=== PATIENT | male | born 1980 | race Caucasian/White ===

== ENCOUNTER 2024-05-30 19:30 | Inpatient (IN) | payer OTHER ==
[~2024-05-30] VITALS: Ht 182.9 cm; Wt 109.4 kg
[2024-05-30] MEDS ORDERED: CeFAZolin Sodium 1,000 MG in NS 50 ML IV ONE (19:50)
[2024-05-30] MEDS ORDERED: Tetanus,Diphtheria Toxd Ped/Pf 0.5 ML VIAL IM ONE (19:50)
[2024-05-30] MEDS ORDERED: HYDROcodone 5-APAP 325 TAB PO ONE (19:50)
[2024-05-30] MEDS ORDERED: Tetanus and Diphtheria Toxoid 0.5 ML INJ IM ONE (20:10)
[2024-05-30 20:46] LABS: BASOPHILS ABSOLUTE AUTO 0.05 K/mm3 (0.00-0.23); BASOPHILS PERCENT AUTO 1 % (0-2); EOSINOPHILS ABSOLUTE AUTO 0.25 K/mm3 (0.00-0.68); EOSINOPHILS PERCENT AUTO 3 % (0-6); IMMATURE GRAN ABSOLUTE AUTO 0.04 K/mm3 (0.00-0.10); IMMATURE GRAN PERCENT AUTO 0 % (0-1); LYMPHOCYTES ABSOLUTE AUTO 2.08 K/mm3 (0.84-5.20); LYMPHOCYTES PERCENT AUTO 21 % (21-46); MONOCYTES ABSOLUTE AUTO 0.77 K/mm3 (0.16-1.47); MONOCYTES PERCENT AUTO 8 % (4-13); Mean Corpuscular HGB 31.7 pg (26.0-34.0); Mean Corpuscular HGB Conc 34.1 g/dL (31.5-36.5); Mean Corpuscular Volume 93 fL (80-100); Mean Platelet Volume 10.5 fL (9.1-12.4); NEUTROPHILS ABSOLUTE AUTO 6.51 K/mm3 (1.96-9.15); NEUTROPHILS PERCENT AUTO 67 % (41-73); Platelet Count 200 K/mm3 (150-400); RDW Coefficient Variation 12.5 % (11.7-14.2); RDW Standard Deviation 43.2 fL (35.1-46.3); Red Blood Cell Count 4.42 M/mm3 (4.30-5.90)
[2024-05-30] MEDS ORDERED: Ketorolac Tromethamine 30mg Vial IV ONE (20:50)
[2024-05-30 20:58] LABS: Albumin, Blood 3.2 g/dL (3.4-5.0); Albumin/Globulin Ratio 0.9 (0.8-1.8); Bilirubin, Total 0.6 mg/dL (0.1-1.0); Bun/Creatinine Ratio 16.1 (12.0-20.0); C-REACTIVE PROTEIN, EXT RANGE 14.1 mg/dL (0.000-0.300); Creatinine, Blood 0.93 mg/dL (0.60-1.20); Globulin, Blood 3.6 g/dL (2.2-4.0); Potassium, Blood 3.7 mmol/L (3.5-5.5); Total Protein, Blood 6.8 g/dL (6.4-8.2)
[2024-05-30] MEDS ORDERED: Ondansetron HCl 2 MG / ML 2ML Vial IV ONE (21:35)
[2024-05-30] MEDS ORDERED: HYDROmorphone HCl/Pf 1MG SYR IV ONE (21:35)
[2024-05-30] MEDS ORDERED: Piperacillin/Tazobactam Sod 3.375 GM in NS 100 ML IV ONE (21:35)
[2024-05-30] MEDS ORDERED: Clindamycin 600mg in D5W 50 ML IV ONE (21:35)
[2024-05-30] MEDS ORDERED: FentaNYL Citrate 50 MCG/ML 2 ML Injection IV PRN (21:45)
[2024-05-30] MEDS ORDERED: Vancomycin HCL 2,000 MG in NS 500 ML IV ONE (21:45)
[2024-05-30] MEDS ORDERED: Ondansetron HCl 2 MG / ML 2ML Vial IV PRN (21:45)
[2024-05-30] MEDS ORDERED: Clindamycin 900mg in D5W 50ML 50 ML IV ONE (21:55)
[2024-05-30] MEDS ORDERED: Acetaminophen 325 MG TABLET PO PRN (21:55)
[2024-05-30] MEDS ORDERED: NS 1,000 ML IV SCH (22:00)
[2024-05-30] MEDS ORDERED: Lactobacil 2-S.Thermo-Bifido 1 1 Cap PO SCH (22:00)
[2024-05-31] VITALS (20 sets, daily range): BP systolic 100–160; BP diastolic 52–92
--- NOTE | 2024-05-31 05:10 | NUR ---
SUMMARY- PT ARRIVED TO ROOM IN NO DISTRESS. PT AGREED TO TAKE A SHOWER. PT HAS ROAD RASH ON BOTH ARMS, WAIST AND BOTTOCKS. PT PAIN HAS BEEN MANAGED WELL PER MAR. PT IS AMBULATING WELL, PT DENIES DIZZINESS. PT IS CURRENTLY RESTING IN NO DISTREESS. CALL LIGHT IN REACH.
[2024-05-31] MEDS ORDERED: Piperacillin/Tazobactam Sod 3.375 GM in NS 100 ML IV SCH (06:00)
[2024-05-31 06:13] LABS: Hematocrit 37.3 % (37.0-53.0); Hemoglobin 12.9 g/dL (13.5-17.5); Mean Corpuscular HGB 32.1 pg (26.0-34.0); Mean Corpuscular HGB Conc 34.6 g/dL (31.5-36.5); Mean Corpuscular Volume 93 fL (80-100); Mean Platelet Volume 10.1 fL (9.1-12.4); Platelet Count 183 K/mm3 (150-400); RDW Coefficient Variation 12.5 % (11.7-14.2); RDW Standard Deviation 42.8 fL (35.1-46.3); Red Blood Cell Count 4.02 M/mm3 (4.30-5.90); White Blood Cell Count 9.35 K/mm3 (4.00-11.30)
[2024-05-31 06:58] LABS: Bun/Creatinine Ratio 15.9 (12.0-20.0); Calcium, Blood 8.4 mg/dL (8.5-10.1); Creatinine, Blood 0.88 mg/dL (0.60-1.20); Potassium, Blood 3.8 mmol/L (3.5-5.5)
[2024-05-31] MEDS ORDERED: HYDROmorphone HCl/Pf 1MG SYR IV PRN ×2 (07:15→14:15)
[2024-05-31] MEDS ORDERED: Clindamycin 900mg in D5W 50ML 50 ML IV SCH (08:00)
[2024-05-31] MEDS ORDERED: Vancomycin HCL 1,250 MG in NS 250 ML IV SCH (09:00)
--- NOTE | 2024-05-31 10:17 | NUR ---
DISCHARGE PT PROVIDED WITH WRITTEN AND VERBAL DISCHARGE INSTRUCTIONS, HE REPORTED UNDERSTANDING. PT MET ALL GOALS PRIOR TO DISCHARGE. PT'S S/O REPORTS SHE HAS ALREADY OBTAINED PRESCRIPTIONS AND DRESSINGS. PT DISCHARGED AT 0953.
[2024-05-31] MEDS ORDERED: Lactated Ringer's 1,000 ML IV SCH (11:05)
[2024-05-31] MEDS ORDERED: Lidocaine HCl 2% 20 ML MDV ONE (11:39)
--- NOTE | 2024-05-31 11:49 | NUR ---
XEROFORM, AND ABD PAD APPLIED TO R ABRASION ON R SIDE AND BACK. TRIPLE ABX OINTMENT APPLIED TO OTHER ABRASIONS ON THE LEGS AND BACK.
--- NOTE | 2024-05-31 11:49 | NUR ---
PT TAKEN TO DAY SURGERY AT APPROXIMATELY 1140.
[2024-05-31] MEDS ORDERED: Piperacillin/Tazobactam Sod 3.375 GM ONE (11:56)
--- NOTE | 2024-05-31 12:14 | NUR ---
IV SITE LAC FLUSHED WITH 10NS/PATENT.
[2024-05-31] MEDS ORDERED: Bupivacaine 0.5% HCl 5 MG/ML 30MLVIAL ONE (12:18)
[2024-05-31] MEDS ORDERED: propofoL 150 ML IV ONE (12:42)
[2024-05-31] MEDS ORDERED: FentaNYL Citrate 50 MCG/ML 2 ML Injection ONE (12:45)
[2024-05-31] MEDS ORDERED: Midazolam HCl 1MG / ML 2ML Vial ONE (12:45)
[2024-05-31] MEDS ORDERED: Ketorolac Tromethamine 30mg Vial ONE (13:12)
[2024-05-31] MEDS ORDERED: Ondansetron HCl 2 MG / ML 2ML Vial ONE (13:13)
[2024-05-31] MEDS ORDERED: Phenylephrine HCl 100 MCG/ML-NS 10MLSYR (1MG/10ML) ONE (13:21)
[2024-05-31] MEDS ORDERED: propofoL 20 ML IV ONE (13:29)
[2024-05-31] MEDS ORDERED: Magnesium Hydroxide Conc 10 ML UDC PO PRN (14:10)
[2024-05-31] MEDS ORDERED: Metoclopramide HCl 10 MG Tab PO PRN (14:10)
[2024-05-31] MEDS ORDERED: Naloxone HCl 0.4MG / ML 1ML Vial IV PRN (14:10)
[2024-05-31] MEDS ORDERED: Ondansetron 4 MG TAB PO PRN (14:15)
[2024-05-31] MEDS ORDERED: Ondansetron HCl 2 MG / ML 2ML Vial IV PRN (14:15)
[2024-05-31] MEDS ORDERED: NS KCl 20mEq 1,000 ML IV SCH (14:15)
[2024-05-31] MEDS ORDERED: OxyCODONE HCL 5 MG TAB PO PRN (14:15)
[2024-05-31] MEDS ORDERED: Bisacodyl 10 MG Supp PR PRN (14:20)
[2024-05-31] MEDS ORDERED: Acetaminophen 325 MG TABLET PO PRN (14:20)
[2024-05-31] MEDS ORDERED: Naproxen 500 MG Tab PO PRN (14:30)
--- NOTE | 2024-05-31 14:33 | NUR ---
05/31/24 1433 Noe,Radha WOUND ON LEFT HAND, BILATERAL KNEES, LEFT MARIE, AND RIGHT FLANK ALL CLEANED WITH SOAP AND WATER. DRESSED WITH XEROFORM, 4X4S, ABD, KERLIX, AND TILA.
[2024-05-31] MEDS ORDERED: Ketorolac Tromethamine 30mg Vial IV PRN (14:35)
[2024-05-31] MEDS ORDERED: HYDROmorphone HCl/Pf 1MG SYR ONE (14:45)
--- NOTE | 2024-05-31 19:31 | NUR ---
SHIFT SUMMARY PT ARRIVED TO THE ROOM FROM PACU AT APPROXIMATELY 1530. PT PAINFUL UPON ARRIVAL, FENTANYL AND OXY GIVEN FOR PAIN. PT REPORTS GOOD PAIN CONTROL DURING BEDSIDE REPORT. PT WANTED TO LEAVE AMA BUT AGREED TO STAY AFTER BEING EDUCATED OF RISKS OF DISCHARGE. PT HAS BEEN PLEASANT AND COOPERATIVE. PT'S FAMILY IS PLEASANT AND SUPPORTIVE. PT CALLS APPROPRIATELY. BEDSIDE REPORT GIVEN TO OLAYINKA HAGEN.
[2024-05-31] MEDS ORDERED: Docusate Sodium 100 MG Cap PO SCH (21:00)
[2024-06-01 00:08] VITALS: BP 140/79
[2024-06-01 00:44] LABS: Vancomycin, Trough 15.5 ug/mL (5.0-10.0)
[2024-06-01 04:37] VITALS: BP 129/62
--- NOTE | 2024-06-01 04:59 | NUR ---
SUMMARY- PT HAS RESTED THROUGHOUT SHIFT. PT HAS BEEN UP TO VOID. PT IS AMBULATING SLOW WITH PURPOSEFUL MOVEMENT. PT PAIN HAS BEEN TREATED ORDERED WITH RELIEF. PT IS EATING AND DRINKING. PT DRESSINGS REMAIN C/D/I. NO NEW ISSUES. CALL LIGHT IN REACH.
[2024-06-01 07:43] VITALS: BP 141/82
[2024-06-01] MEDS ORDERED: Enoxaparin 40 MG/0.4 ML SYR SC SCH (09:00)
[2024-06-01 09:30] LABS: BASOPHILS ABSOLUTE AUTO 0.02 K/mm3 (0.00-0.23); BASOPHILS PERCENT AUTO 0 % (0-2); EOSINOPHILS ABSOLUTE AUTO 0.18 K/mm3 (0.00-0.68); EOSINOPHILS PERCENT AUTO 3 % (0-6); Hematocrit 33.2 % (37.0-53.0); Hemoglobin 11.3 g/dL (13.5-17.5); IMMATURE GRAN ABSOLUTE AUTO 0.02 K/mm3 (0.00-0.10); IMMATURE GRAN PERCENT AUTO 0 % (0-1); LYMPHOCYTES ABSOLUTE AUTO 1.27 K/mm3 (0.84-5.20); LYMPHOCYTES PERCENT AUTO 21 % (21-46); MONOCYTES PERCENT AUTO 8 % (4-13); Mean Corpuscular HGB 32.3 pg (26.0-34.0); Mean Corpuscular Volume 95 fL (80-100); Mean Platelet Volume 9.6 fL (9.1-12.4); NEUTROPHILS ABSOLUTE AUTO 4.08 K/mm3 (1.96-9.15); NEUTROPHILS PERCENT AUTO 67 % (41-73); Platelet Count 165 K/mm3 (150-400); RDW Coefficient Variation 12.7 % (11.7-14.2); White Blood Cell Count 6.07 K/mm3 (4.00-11.30)
[2024-06-01 09:47] LABS: Bun/Creatinine Ratio 11.6 (12.0-20.0); C-REACTIVE PROTEIN, EXT RANGE 10.3 mg/dL (0.000-0.300); Calcium, Blood 7.9 mg/dL (8.5-10.1); Creatinine, Blood 0.95 mg/dL (0.60-1.20)
[2024-06-01 14:51] VITALS: BP 124/72
--- NOTE | 2024-06-01 19:29 | NUR ---
shift summary pod 1 i&d r elbow PT AMBULATING IN ROOM. DRESSINGS REMOVED WITH SURGEON AND PT SHOWERED PRIOR TO DRESSING CHANGES. PT TOLERATED WELL. L GREAT TOE HAS A LARGE CHUNK TAKEN OUT OF IT ON THE BOTTOM PT REPORTS PAIN WITH CLEANING AND DRESSING, BUT STATES TOLERABLE. PT REPORTS PAIN CONTROLLED WELL. TOLERATING DIET WELL. CALLS APPORPRIATLY.
[2024-06-01 19:54] VITALS: BP 144/78
[2024-06-02] MEDS ORDERED: NS 500 ML IV ONE (03:07)
[2024-06-02 05:09] VITALS: BP 141/72
--- NOTE | 2024-06-02 06:56 | NUR ---
NO ACUTE CHANGES DURING SHIFT. PT DENIES NEEDING PAIN MEDS BUT CAN BE HEARD GRUNTING ESPECIALLY WITH MOVEMENT. PT ACCIDENTALY REMOVED IV WHILE SLEEPING, NEW IV SITE PLACED.
[2024-06-02 07:22] VITALS: BP 149/73
[2024-06-02] MEDS ORDERED: Trimethoprim/Sulfamethoxazole DS Tab PO SCH (09:00)
--- NOTE | 2024-06-02 10:57 | NUR ---
POD 2 I&D. RIGHT ELBOW DRESSING REMOVED WITH SURGON THIS MORNING. BANDAGE CHANGED AFTER VIEWING. BANDAGED AND PLACED GAUZE TO PTS HIPS PT WAS COMPLAINING SCABS WERE CATCHING ON BED SHEETS AND CAUSING PAIN. PAIN MEDICATED PER EMAR.
[2024-06-02] MEDS ORDERED: NS 500 ML IV SCH (14:25)
[2024-06-02 15:01] VITALS: BP 116/67
--- NOTE | 2024-06-02 19:31 | NUR ---
SHIFT SUMMARY POD 2 I&D R ELBOW. PT IND IN ROOM. AMBULATES WELL TO RESTROOM ALTHOUGH SLOWLY. PAIN MANAGED WELL PER EMAR. DRESSINGS REMAIN CDI. PT TRANSITIONING TO ORAL ABX. PLAN IS TO DC IN THE AM. PT AGREEABLE AND LOOKING FORWARD TO GOING HOME. TOLERATING DIET.
[2024-06-02 19:38] VITALS: BP 129/64
[2024-06-03 03:47] VITALS: BP 126/60
--- NOTE | 2024-06-03 04:53 | NUR ---
SHIFT SUMMARY POD 3 R ELBOW I&D PT SLEPT FOR MOST OF NIGHT. PAIN MANAGED PER EMAR. TOLERATING PO INTAKE, VOIDIONG. DRESSING ON LEGS AND L ARM WERE CHANGED DURING THE NIGHT. ALL DRESSING ARE C/D/I. PT ABLE TO TRANSFER TO THE WITH SBA. VSS. NO OTHER CONCERNS AT THIS TIME, CALL LIGHT ANDIIN REACH
[2024-06-03 07:19] VITALS: BP 155/75
[2024-06-03] MEDS ORDERED: SULTRIDS PO (10:06)
[2024-06-03] MEDS ORDERED: OXAYDO5 M1 PO (10:06)
[2024-06-03] MEDS ORDERED: NAPR500 PO (10:06)
--- NOTE | 2024-06-03 11:02 | NUR ---
DISCHARGE: PACKET PRINTED AND PT EDUCATED. IV DC'D WNL, TIP INTACT. PT GIVEN PAIN SCRIPT AND MEDS FAXED TO [facility]. PT AND FAMILY REPORTS THAT THE ALREADY HAD EDUCATION ON WOUND DRESSING CHANGES. PT GIVEN SUPPLIES TO CHANGE DRESSINGS DAILY. PT LEFT UNIT ON FOOT WITH HIS MOM AT ABOUT 1030
== END 2024-06-03 10:30 | disposition home or self-care (01) | DRG 563 ==
LOC: ER 19:30 → SURS 19:31
PROVIDERS: Emergency Medicine; Orthopaedic Surgery; ADMIT Internal Medicine
DX: S42.461 Displaced fracture of medial condyle of right humerus (principal); V29.99XA Rider (driver) (passenger) of other motorcycle injured in unspecified traffic accident, initial encounter; S51.011A Laceration without foreign body of right elbow, initial encounter; Z56.0 Unemployment, unspecified; F17.210 Nicotine dependence, cigarettes, uncomplicated; S54.01XA Injury of ulnar nerve at forearm level, right arm, initial encounter
CPT/HCPCS: 36415; 73070; 73130; 73201; 73562-RT; 73630; 80048; 80053; 80202; 83605; 83735; 85025; 85027; 86140; 90471; 90702; 90714; 94760; 96365-59; 96366; 96367; 96368; 96375; 96375-59; 96376; 97110; 97161; 97165; 99285-25; A9270; G0378; J0690; J1170; J1885; J2250; J2371; J2405; J2543; J2704; J3010; J3370; J3480; J7030; J7040; J7050; J7120; Q9967

== ENCOUNTER → 2024-08-31 | Outpatient (CLI) | payer OTHER ==
[~2024-08-31] MED LIST: NAPR500 PO; OXAYDO5 M1 PO; SULTRIDS PO
== END ==
LOC: LAB SHORT 13:22 → LAB 13:22
DX: R22.0 Localized swelling, mass and lump, head (principal)
CPT/HCPCS: 88305